=== PATIENT | female | born 1970 | race Caucasian/White ===

== ENCOUNTER 2024-03-23 17:39 | Emergency (ER) | payer MEDICARE, MEDICAID ==
[2024-03-23] MEDS ORDERED: Acetaminophen 500 MG TAB ONE (19:04)
== END 2024-03-23 19:15 | disposition home or self-care (01) ==
LOC: BURERS 17:39
DX: S63.501A Unspecified sprain of right wrist, initial encounter (principal); S40.012A Contusion of left shoulder, initial encounter; S80.01XA Contusion of right knee, initial encounter; F17.210 Nicotine dependence, cigarettes, uncomplicated; W10.8XXA Fall (on) (from) other stairs and steps, initial encounter